=== PATIENT | female | born 1965 | race Caucasian/White ===

== ENCOUNTER 2016-04-17 12:53 | Emergency (ER) | payer BC ==
[2016-04-17] MEDS ORDERED: METOCLOPRAMIDE 10 MG/2 ML VIAL ONE (15:39)
[2016-04-17] MEDS ORDERED: DIPHENHYDRAMINE 50 MG/ML VIAL ONE (15:40)
[2016-04-17] MEDS ORDERED: SODIUM CHLORIDE 0.9% 1,000 ML ONE (15:40)
[2016-04-17] MEDS ORDERED: KETOROLAC 30 MG/ML VIAL ONE (15:40)
== END 2016-04-17 18:26 | disposition home or self-care (01) ==
LOC: ER 12:53
DX: R51 Headache (principal); M94.0 Chondrocostal junction syndrome [Tietze]; N39.0 Urinary tract infection, site not specified; R94.5 Abnormal results of liver function studies; F17.210 Nicotine dependence, cigarettes, uncomplicated
CPT/HCPCS: 36415; 71020; 80053; 81001; 82553; 82947; 83690; 84484; 84703; 85025; 85610; 85730; 87088; 93005; 96361; 96374; 96375